=== PATIENT | female | born 1990 | race African-American/Black ===

== ENCOUNTER 2020-10-18 05:01 | Inpatient (IN) ==
[2020-10-18] MEDS ORDERED: LACTATED RINGERS 1,000 ML IV ONE ×2 (05:12→07:58)
[2020-10-18] MEDS ORDERED: BUTORPHANOL 2 MG/ML VIAL IV PRN (05:12)
[2020-10-18] MEDS ORDERED: ONDANSETRON 4 MG/2 ML VIAL IV PRN ×2 (05:12→16:30)
[2020-10-18] MEDS ORDERED: OXYTOCIN/LR 20 UNIT/1,000 ML BAG IV SCH (05:30)
[2020-10-18] MEDS: LACTATED RINGERS 1,000 ML IV SCH ×2 (06:03→11:23)
[2020-10-18 06:06] LABS: Basophils % 0.3 % (0.0-0.8); Eosinophils % 0.2 % (0.00-10.9); Hematocrit 32.3 VOL% (35.7-47.0); Hemoglobin 10.5 GM/DL (12.0-16.0); Immature Granulocytes % 1.2 %; Immature Granulocytes Absolute 0.11 #; Lymphocytes # 2.1 10*3/uL (1.4-4.0); Lymphocytes % 22.5 % (21.3-54.2); Mean Corpuscular HGB Conc 32.5 GM/DL (32-36); Mean Corpuscular Volume 84.1 FL (87-102); Mean Platelet Volume 9.7 FL (9.6-12.0); Monocytes % 5.1 % (1.7-12.7); Neutrophils % 70.7 % (38.7-73.9); Platelet Count 313 T/CUMM (130-400); Red Blood Count 3.84 MC/CUMM (3.8-5.5); Red Cell Distribution Width 14.5 % (9.3-17.3); White Blood Count 9.3 T/CUMM (4-12)
[2020-10-18 06:29] LABS: Albumin 2.4 G/DL (3.4-5.0); Bilirubin,Total 0.5 MG/DL (0.20-1.00); Calcium 8.4 MG/DL (8.5-10.1); Osmolality,Calculated 270.8 MOS/KG (273-304); Total Protein 6.5 G/DL (6.4-8.2)
[2020-10-18] MEDS ORDERED: NALOXONE 0.4 MG/ML VIAL IV PRN (07:58)
[2020-10-18] MEDS ORDERED: diphenhydrAMINE 50 MG/1 ML VIAL IV PRN (07:58)
[2020-10-18] MEDS ORDERED: ePHEDrine 50 MG/ML VIAL IV PRN (07:58)
[2020-10-18] MEDS ORDERED: FAMOTIDINE 20 MG/2 ML VIAL IV ONE ×2 (07:58→08:42)
[2020-10-18] MEDS ORDERED: CITRIC ACID/SODIUM CITRATE 30 ML UDCUP PO ONE (07:58)
[2020-10-18] MEDS ORDERED: fentaNYL 2 MCG/ROPIV 0.2% EPID 100 ML EPIDURAL SCH (08:00)
[2020-10-18] MEDS ORDERED: CITRIC ACID/SODIUM CITRATE 30 ML UDCUP ONE (08:42)
[2020-10-18] MEDS ORDERED: ePHEDrine 50 MG/ML VIAL ONE (08:43)
[2020-10-18] MEDS ORDERED: fentaNYL 2 MCG/ROPIV 0.2% EPID 100 ML EPIDURAL ONE (08:43)
[2020-10-18] MEDS: POTASSIUM CHLORIDE RIDER 10 MEQ/100 ML PREMIX IV PRN ×5 (09:57→14:59)
[2020-10-18 11:15] LABS: Bilirubin,Urine Negative (Negative); Blood, Urine Negative (Negative); Glucose,Urine (UA) Negative (Negative); Ketones,Urine 20 mg/dL (Negative); Nitrite,Urine Negative (Negative); Protein,Urine Negative; RBC,Urine 1 /HPF (0-4); Urine Appearance CLEAR (Clear); Urine Color Colorless (Yellow); Urine Specific Gravity 1.003 (1.001-1.035); Urine Urobilinogen < 2.0 EU/DL (0.2-1.0)
[2020-10-18] MEDS ORDERED: miSOPROStoL 200 MCG TABLET ONE (13:16)
[2020-10-18] MEDS ORDERED: CARBOPROST TROMETHAMINE 250 MCG/ML AMP IM ONE (13:17)
[2020-10-18] MEDS ORDERED: METHYLERGONOVINE 0.2 MG/1 ML AMP ONE (13:17)
[2020-10-18] MEDS ORDERED: IBUPROFEN 800 MG TABLET PO ONE (16:03)
[2020-10-18] MEDS ORDERED: BISACODYL 10 MG SUPP RECTAL PRN (16:30)
[2020-10-18] MEDS ORDERED: DIPH/TET/ACEL PERT BOOSTER VACCINE 0.5 ML VIAL IM ONE (16:30)
[2020-10-18] MEDS ORDERED: ACETAMINOPHEN 325 MG TABLET PO PRN (16:30)
[2020-10-18] MEDS ORDERED: WITCH HAZEL PADS 100/JAR TOP PRN (16:30)
[2020-10-18] MEDS ORDERED: RHO(D) IMMUNE GLOBULIN 300 MCG SYRINGE IM ONE (16:30)
[2020-10-18] MEDS ORDERED: MEASLES/MUMPS/RUBELLA VACCINE 0.5 ML VIAL SUBCUT ONE (16:30)
[2020-10-18] MEDS ORDERED: HYDROCORTISONE 2.5% RECTAL CREAM 30 GM TUBE TOP PRN (16:30)
[2020-10-18] MEDS ORDERED: oxyCODONE/ACETAMINOPHEN 5-325 MG TABLET PO PRN ×2 (16:30)
[2020-10-18] MEDS ORDERED: BENZOCAINE 20%/MENTHOL 0.5% SPRAY 56 GM CAN TOP PRN (16:30)
[2020-10-18] MEDS ORDERED: LANOLIN 50% CREAM 0.3 OZ TUBE TOP PRN (16:30)
[2020-10-18] MEDS ORDERED: OXYTOCIN/LR 20 UNIT/1,000 ML BAG IV ONE (16:30)
[2020-10-18] MEDS: DOCUSATE SODIUM 100 MG CAPSULE PO SCH (21:32)
[2020-10-19 04:42] LABS: Basophils % 0.3 % (0.0-0.8); Eosinophils % 0.3 % (0.00-10.9); Hematocrit 30.1 VOL% (35.7-47.0); Hemoglobin 9.6 GM/DL (12.0-16.0); Immature Granulocytes % 0.8 %; Lymphocytes # 2.2 10*3/uL (1.4-4.0); Lymphocytes % 18.9 % (21.3-54.2); Mean Corpuscular HGB Conc 31.9 GM/DL (32-36); Mean Corpuscular Volume 86.2 FL (87-102); Mean Platelet Volume 10.3 FL (9.6-12.0); Monocytes % 6.6 % (1.7-12.7); Neutrophils % 73.1 % (38.7-73.9); Platelet Count 274 T/CUMM (130-400); Red Blood Count 3.49 MC/CUMM (3.8-5.5); Red Cell Distribution Width 14.6 % (9.3-17.3); White Blood Count 11.9 T/CUMM (4-12)
[2020-10-19] MEDS: IBUPROFEN 800 MG TABLET PO PRN ×2 (08:00→20:58)
[2020-10-19] MEDS: DOCUSATE SODIUM 100 MG CAPSULE PO SCH ×2 (08:01→20:59)
[2020-10-19] MEDS: POTASSIUM CHLORIDE 20 MEQ TABLET PO SCH (18:36)
[2020-10-20 08:30] VITALS: BP 129/71
[2020-10-20] MEDS: DOCUSATE SODIUM 100 MG CAPSULE PO SCH (09:03)
[2020-10-20] MEDS: POTASSIUM CHLORIDE 20 MEQ TABLET PO SCH (09:30)
== END 2020-10-20 11:35 | disposition home or self-care (01) | DRG 560 ==
LOC: N.LDOUT 05:01 → N.LD 05:04 → N.OB 17:08
PROVIDERS: ADMIT Obstetrics & Gynecology; ATTEND Obstetrics & Gynecology

== ENCOUNTER 2020-10-30 17:01 | Observation (INO) ==
[2020-10-30] MEDS ORDERED: KETOROLAC 30 MG/1 ML VIAL IV STA (19:03)
[2020-10-30] MEDS ORDERED: ONDANSETRON 4 MG/2 ML VIAL IV STA ×2 (19:04→21:04)
[2020-10-30] MEDS ORDERED: ONDANSETRON 4 MG/2 ML VIAL ONE (19:05)
[2020-10-30] MEDS ORDERED: KETOROLAC 30 MG/1 ML VIAL ONE (19:05)
[2020-10-30 19:07] LABS: Bilirubin,Urine Negative (Negative); Blood, Urine Small mg/dL (Negative); Glucose,Urine (UA) Negative (Negative); Ketones,Urine Negative (Negative); Mucus,Urine Many /LPF (Occasional); Nitrite,Urine Negative (Negative); Protein,Urine 30 MG/DL; RBC,Urine 5 /HPF (0-4); Squamous Epithelial Cell,Urine Occasional /HPF (0-10); Urine Appearance CLEAR (Clear); Urine Color Yellow (Yellow); Urine Specific Gravity 1.026 (1.001-1.035)
[2020-10-30] MEDS ORDERED: SODIUM CHLORIDE 0.9% 1,000 ML IV STA ×2 (19:45→21:02)
[2020-10-30 19:56] LABS: Basophils % 0.1 % (0.0-0.8); Eosinophils % 0.1 % (0.00-10.9); Hematocrit 39.8 VOL% (35.7-47.0); Hemoglobin 12.3 GM/DL (12.0-16.0); Immature Granulocytes % 0.3 %; Immature Granulocytes Absolute 0.03 #; Lymphocytes # 0.9 10*3/uL (1.4-4.0); Mean Corpuscular HGB Conc 30.9 GM/DL (32-36); Mean Corpuscular Volume 86.7 FL (87-102); Monocytes % 3.5 % (1.7-12.7); Platelet Count 368 T/CUMM (130-400); Red Blood Count 4.59 MC/CUMM (3.8-5.5); Red Cell Distribution Width 15.1 % (9.3-17.3); White Blood Count 10.8 T/CUMM (4-12)
[2020-10-30 20:12] LABS: Albumin 3.2 G/DL (3.4-5.0); Bilirubin,Total 1.1 MG/DL (0.20-1.00); Calcium 8.8 MG/DL (8.5-10.1); Osmolality,Calculated 275.4 MOS/KG (273-304); Potassium 3.9 MMOL/L (3.5-5.1); Total Protein 7.4 G/DL (6.4-8.2)
[2020-10-30] MEDS ORDERED: PIPERACILLIN/TAZOBACTAM 3,375 MG in SODIUM CHLORIDE 0.9% 100 ML IV STA (21:04)
[2020-10-30] MEDS ORDERED: PIPERACILLIN/TAZOBACTAM 3,375 MG VIAL IV ONE (21:11)
[2020-10-30] MEDS ORDERED: MORPHINE 2 MG/1 ML SYRINGE IV PRN (22:17)
[2020-10-30] MEDS ORDERED: ONDANSETRON 4 MG/2 ML VIAL IV PRN (22:17)
[2020-10-30] MEDS ORDERED: ACETAMINOPHEN 325 MG TABLET PO PRN (22:17)
[2020-10-30] MEDS ORDERED: LACTATED RINGERS 1,000 ML IV SCH (22:17)
[2020-10-31] MEDS: PIPERACILLIN/TAZOBACTAM 3,375 MG in SODIUM CHLORIDE 0.9% 100 ML IV SCH ×2 (05:59→17:33)
[2020-10-31 06:48] LABS: Basophils % 0.1 % (0.0-0.8); Eosinophils % 0.3 % (0.00-10.9); Hemoglobin 11.2 GM/DL (12.0-16.0); Immature Granulocytes % 0.3 %; Immature Granulocytes Absolute 0.02 #; Lymphocytes # 1.6 10*3/uL (1.4-4.0); Mean Corpuscular HGB Conc 31.1 GM/DL (32-36); Mean Corpuscular Volume 86.5 FL (87-102); Mean Platelet Volume 10.1 FL (9.6-12.0); Monocytes % 5.3 % (1.7-12.7); Platelet Count 341 T/CUMM (130-400); Red Blood Count 4.16 MC/CUMM (3.8-5.5); Red Cell Distribution Width 14.9 % (9.3-17.3); White Blood Count 7.4 T/CUMM (4-12)
[2020-10-31 07:08] LABS: Hypochromasia 1+
[2020-10-31 07:09] LABS: Microcytosis 1+; Ovalocytes Slight; Platelet Estimate Normal
[2020-10-31 07:14] LABS: Albumin 2.4 G/DL (3.4-5.0); Bilirubin,Total 1.3 MG/DL (0.20-1.00); Osmolality,Calculated 277.3 MOS/KG (273-304); Potassium 3.6 MMOL/L (3.5-5.1)
[2020-10-31] MEDS ORDERED: BUPIVACAINE MPF 0.25% 30 ML VIAL ONE (08:17)
[2020-10-31] MEDS ORDERED: TISSUE ADHESIVE 1 EACH APPLICATOR TOP ONE (08:17)
[2020-10-31] MEDS ORDERED: LIDOCAINE 1%/EPI INJ 20 ML VIAL ONE (08:18)
[2020-10-31] MEDS ORDERED: propofoL 200 MG/20 ML VIAL IV ONE (08:30)
[2020-10-31] MEDS ORDERED: ONDANSETRON 4 MG/2 ML VIAL ONE (08:30)
[2020-10-31] MEDS ORDERED: LIDOCAINE 2% 5 ML VIAL ONE (08:30)
[2020-10-31] MEDS ORDERED: DEXAMETHASONE 4 MG/1 ML VIAL ONE (08:30)
[2020-10-31] MEDS ORDERED: SUCCINYLCHOLINE 200 MG/10 ML VIAL ONE (08:30)
[2020-10-31] MEDS ORDERED: ROCURONIUM 50 MG/5 ML VIAL IV ONE (08:30)
[2020-10-31] MEDS ORDERED: fentaNYL 100 MCG/2 ML VIAL ONE (08:30)
[2020-10-31] MEDS ORDERED: LACTATED RINGERS 1,000 ML IV SCH (09:00)
[2020-10-31] MEDS ORDERED: PANTOPRAZOLE 40 MG VIAL IV SCH (09:00)
[2020-10-31] MEDS ORDERED: NEOSTIGMINE 10 MG/10 ML VIAL ONE (09:08)
[2020-10-31] MEDS ORDERED: GLYCOPYRROLATE 0.4 MG/2 ML VIAL ONE (09:08)
[2020-10-31] MEDS ORDERED: SEVOFLURANE 1 UNIT/15 MINUTE INH ONE (09:08)
[2020-10-31] MEDS ORDERED: KETOROLAC 30 MG/1 ML VIAL ONE (09:08)
[2020-10-31] MEDS ORDERED: SODIUM CHLORIDE 0.9% 1,000 ML IV ONE (09:32)
[2020-10-31] MEDS ORDERED: ONDANSETRON 4 MG/2 ML VIAL IV PRN (09:55)
[2020-10-31] MEDS: HYDROmorphone 2 MG/1 ML VIAL IV PRN ×2 (10:00→10:08)
[2020-10-31 17:35] VITALS: BP 146/70
== END 2020-10-31 17:35 | disposition home or self-care (01) ==
LOC: N.EDINP 17:01 → N.ED 17:01 → N.EDINP 22:11 → N.3E 22:16
PROVIDERS: ADMIT Nurse Practitioner; ATTEND Student in an Organized Health Care Education/Training Program